=== PATIENT | female | born 1940 | race Caucasian/White ===

== ENCOUNTER 2017-11-25 13:08 | Observation (INO) | payer MEDICARE, BC ==
[2017-11-25] MEDS ORDERED: Meclizine 12.5 MG Tab PO ONE (13:20)
--- NOTE | 2017-11-25 13:26 | EDM.PDOC ---
ED HPI GENERAL MEDICAL PROBLEM - General Chief Complaint: General Stated Complaint: dissiness, n/v Time Seen by Provider: 11/25/17 13:20 Source of Information: Reports: Patient History Limitations: Reports: No Limitations - History of Present Illness INITIAL COMMENTS - FREE TEXT/NARRATIVE: Sarah is a 77 year old female with PMH significant for hypothyroidism, hypertension, hyperlipidemia, allergic rhinitis, and osteoarthritis, who presents to the ED with c/o dizziness described as spinning and nausea/ vomiting. She reports upon awakening this morning around 630 she was very unsteady and "everything was spinning." She reports she then laid back down and tried to sleep some. She reports around 930 am she got up again and continued to be unsteady and spinning. She then reports she took her blood pressure pills and tried to lay down again. She reports she has felt nauseated and has been dry heaving. She felt it would go away but it hasn't, so she called her neighbor to bring her to the ED. At time of ED presentation, patient does not want to open eyes due to spinning sensation. She is alert and oriented. She is able to ambulate from vehicle to wheelchair with assistance of staff. She describes the "dizziness" as spinning versus lightheaded. She denies any injury to her head. Denies any history of vertigo. She is not experiencing any tinnitus. Denies any hearing loss. She has not had anything to eat or drink today. - Related Data Allergies Allergy/AdvReac Type Severity Reaction Status Date / Time No Known Allergies Allergy Verified 11/25/17 13:27 Home Meds: Home Meds Aspirin [Adult Low Dose Aspirin EC] 81 mg PO BEDTIME 09/10/13 [History] Diclofenac Sodium/Misoprostol [Arthrotec 75 mg-200 Mcg Tab] 1 each PO DAILY PRN 09/10/13 [History] Levothyroxine 75 mcg PO ACBRK 09/10/13 [History] Loratadine [Claritin] 10 mg PO DAILY PRN 09/10/13 [History] Multivitamin [Multivitamins] 1 each PO DAILY 09/10/13 [History] Potassium Chloride 10 meq PO DAILY 09/10/13 [History] Quinapril/Hydrochlorothiazide [Quinapril-HCTZ 20-25 MG] 1 each PO DAILY [History] Simvastatin 40 mg PO BEDTIME 09/10/13 [History] Social & Family History - Tobacco Use Smoking Status *Q: Never Smoker - Caffeine Use Caffeine Use: Reports: Coffee, Soda - Recreational Drug Use Recreational Drug Use: No ED ROS GENERAL - Review of Systems Review Of Systems: See Below Constitutional: Reports: Decreased Appetite. Denies: Fever, Chills, Weakness, Fatigue HEENT: Reports: Vertigo. Denies: Dental Pain, Ear Pain, Eye Pain, Hearing Loss , Rhinitis, Sinus Problem, Throat Pain, Vision Change Respiratory: Reports: No Symptoms. Denies: Shortness of Breath, Cough, Sputum Cardiovascular: Denies: Chest Pain, Dyspnea on Exertion, Edema, Lightheadedness , Palpitations, Syncope Endocrine: Reports: No Symptoms GI/Abdominal: Reports: Decreased Appetite, Nausea, Vomiting. Denies: Abdominal Pain, Constipation, Diarrhea, Hematemesis, Hematochezia, Melena : Reports: No Symptoms. Denies: Dysuria, Frequency, Urgency Musculoskeletal: Reports: No Symptoms Skin: Reports: Diaphoresis Neurological: Reports: Dizziness, Difficulty Walking (due to unsteadiness). Denies: Confusion, Headache, Numbness, Tingling, Weakness Psychiatric: Reports: No Symptoms Hematologic/Lymphatic: Reports: No Symptoms Immunologic: Reports: No Symptoms ED EXAM, GENERAL - Physical Exam Exam: See Below Exam Limited By: No Limitations General Appearance: Alert, WD/WN, Mild Distress Eye Exam: Bilateral Eye: EOMI, Normal Fundi, Normal Inspection, PERRL Ears: Normal External Exam, Normal Canal, Hearing Grossly Normal, Normal TMs Nose: Normal Inspection, Normal Mucosa, No Blood Throat/Mouth: Normal Inspection, Normal Lips, Normal Teeth, Normal Gums, Normal Oropharynx, Normal Voice, No Airway Compromise Head: Atraumatic, Normocephalic Neck: Normal Inspection, Supple, Non-Tender, Full Range of Motion Respiratory/Chest: No Respiratory Distress, Lungs Clear, Normal Breath Sounds, No Accessory Muscle Use, Chest Non-Tender Cardiovascular: Normal Peripheral Pulses, Regular Rate, Rhythm, No Edema, No Gallop, No JVD, No Murmur, No Rub GI/Abdominal: Normal Bowel Sounds, Soft, Non-Tender, No Organomegaly, No Distention, No Abnormal Bruit, No Mass Back Exam: Normal Inspection, Full Range of Motion, NT Extremities: Normal Inspection, Normal Range of Motion, Non-Tender, Normal Capillary Refill, No Pedal Edema Neurological: Alert, Oriented, CN II-XII Intact, Normal Cognition, No Motor/ Sensory Deficits, Other (vertigo) Psychiatric: Normal Affect, Normal Mood Skin Exam: Warm, Dry, Intact, Normal Color, No Rash Lymphatic: No Adenopathy Course - Vital Signs Last Recorded V/S: Last Vital Signs Temp 98.7 F 11/25/17 19:16 Pulse 94 11/25/17 19:16 Resp 16 11/25/17 19:16 BP 151/64 H 11/25/17 19:16 Pulse Ox 94 L 11/25/17 19:16 - Orders/Labs/Meds Orders: Active Orders 24 hr Category Date Time Status Patient Status [ADT] Routine ADT 11/25/17 15:14 Active Cardiac Monitoring [RC] 0800,1999 Care 11/25/17 15:14 Active Oxygen Therapy [RC] .PRN Care 11/25/17 15:14 Active Up With Assistance [RC] .PRN Care 11/25/17 15:14 Active Vital Signs [RC] 0000,0400,0800,1200,1600,2000 Care 11/25/17 15:14 Active PT Evaluation and Treatment [CONS] Routine Cons 11/25/17 15:14 Active Regular Diet [DIET] Diet 11/25/17 Dinner Active Head wo Cont [CT] Stat Exams 11/25/17 13:18 Taken Acetaminophen [Tylenol] Med 11/25/17 15:14 Active 650 mg PO Q4H PRN Ondansetron [Zofran] Med 11/25/17 14:29 Active 4 mg IVPUSH Q6H PRN Temazepam [Restoril] Med 11/25/17 15:14 Active 15 mg PO BEDTIME PRN Resuscitation Status Routine Resus Stat 11/25/17 14:31 Ordered Medication Orders Acetaminophen (Tylenol) 650 mg PO Q4H PRN PRN Reason: Pain (Mild 1-3)/fever Aspirin (Halfprin) 81 mg PO BEDTIME [facility] Last Admin: 11/25/17 19:27 Dose: 81 mg Enoxaparin Sodium (Lovenox) 40 mg SUBCUT Q24H [facility] Last Admin: 11/25/17 19:27 Dose: 40 mg Levothyroxine Sodium (Levothyroxine) 75 mcg PO ACBRK GEOVANNA Meclizine HCl (Antivert) 25 mg PO Q6H PRN PRN Reason: Dizziness Last Admin: 11/25/17 19:26 Dose: 25 mg Non-Formulary Medication (Quinapril/Hydrochlorothiazide [Quinapril-Hctz 20-25 Mg ]) 1 each PO DAILY GE[facility]ANNA Ondansetron HCl (Zofran) 4 mg IVPUSH Q6H PRN PRN Reason: Nausea Last Admin: 11/25/17 14:35 Dose: 4 mg Potassium Chloride (Klor-Con 10) 10 meq PO DAILY GE[facility]NA Temazepam (Restoril) 15 mg PO BEDTIME PRN PRN Reason: Sleep Labs: Laboratory Tests 11/25/17 11/25/17 11/25/17 Range/Units 13:18 13:40 13:40 WBC 7.2 (5.0-10.0) 10^3/uL RBC 4.47 (4.00-5.50) 10^6/uL Hgb 14.1 (12.0-16.0) g/dL Hct 42.7 (37.0-47.0) % MCV 95.5 H (82.0-94.0) fL MCH 31.5 (27.0-32.0) pg MCHC 33.0 (33.0-38.0) g/dL RDW Coeff of [place] 14.0 (11.0-15.0) % Plt Count 277 (150-400) 10^3/uL Neut % (Auto) 77.1 (35-85) % Lymph % (Auto) 14.0 (10-55) % [place] % (Auto) 6.6 (0-16) % Eos % (Auto) 1.9 (0-5) % Baso % (Auto) 0.4 (0-3) % Neut # (Auto) 5.58 (1.80-7.00) 10^3/uL Lymph # (Auto) 1.01 (1.00-4.80) 10^3/uL [place] # (Auto) 0.48 (0.00-0.80) 10^3/uL Eos # (Auto) 0.14 (0.00-0.45) 10^3/uL Baso # (Auto) 0.03 10^3/uL Sodium 136 (136-145) mEq/L Potassium 3.5 (3.5-5.0) mEq/L Chloride 101 (98-106) mEq/L Carbon Dioxide 30 (21-32) mmol/L BUN 18 (7-18) mg/dL Creatinine 0.8 (0.6-1.0) mg/dL Est Cr Clr Drug Dosing 45.84 mL/min Estimated GFR (MDRD) > 60 (>=60) mL/min Glucose 140 H (75-99) mg/dL Calcium 9.6 (8.4-10.1) mg/dL Total Bilirubin 0.6 (0.0-1.0) mg/dL AST 18 (15-37) U/L ALT 30 (12-78) U/L Alkaline Phosphatase 94 (46-116) U/L Troponin I < 0.017 (0.00-0.06) ng/mL C-Reactive Protein < 0.2 L (0.2-0.8) mg/dL Total Protein 7.3 (6.4-8.2) g/dL Albumin 4.0 (3.4-5.0) g/dL Urine Color Yellow (YELLOW) Urine Appearance Clear (CLEAR) Urine pH 7.0 (4.5-8.0) Ur Specific [place] 1.025 H (1.003-1.020) Urine Protein 100 H (NEGATIVE) mg/dL Urine Glucose (UA) Negative (NEGATIVE) mg/dL Urine Ketones 15 H (NEGATIVE) mg/dL Urine Occult Blood Negative (NEGATIVE) Urine Nitrite Negative (NEGATIVE) Urine Bilirubin Negative (NEGATIVE) Urine Urobilinogen 0.2 (0.2-1.0) EU/dL Ur Leukocyte Esterase Negative (NEGATIVE) Urine RBC Not seen (0-5) /HPF Urine WBC Not seen (0-5) /HPF Ur Squamous Epith Cells Few H (NOT SEEN) /HPF Urine Bacteria Moderate H (NOT SEEN) /HPF Meds: Medications Generic Name Dose Route Start Last Admin Trade Name Freq PRN Reason Stop Dose Admin Acetaminophen 650 mg 11/25/17 15:14 Tylenol PO Q4H PRN Pain (Mild 1-3)/fever Aspirin 81 mg 11/25/17 20:00 11/25/17 19:27 Halfprin PO 81 mg BEDTIME GEOVANNA Administration Enoxaparin Sodium 40 mg 11/25/17 20:00 11/25/17 19:27 Lovenox SUBCUT 40 mg Q24H GEOVANNA Administration Levothyroxine Sodium 75 mcg 11/26/17 07:00 Levothyroxine PO ACBRK GEOVANAN Meclizine HCl 25 mg 11/25/17 18:15 11/25/17 19:26 Antivert PO 25 mg Q6H PRN Administration Dizziness Non-Formulary Medication 1 each 11/26/17 08:00 Quinapril/Hydrochlorothiazide [Quinapril-Hctz 20-25 Mg] PO DAILY GE[facility]NA Ondansetron HCl 4 mg 11/25/17 14:29 11/25/17 14:35 Zofran IVPUSH 4 mg Q6H PRN Administration Nausea Potassium Chloride 10 meq 11/26/17 08:00 Klor-Con 10 PO DAILY GEOVANNA Temazepam 15 mg 11/25/17 15:14 Restoril PO BEDTIME PRN Sleep Discontinued Medications Generic Name Dose Route Start Last Admin Trade Name Freq PRN Reason Stop Dose Admin Sodium Chloride 1,000 mls @ 75 mls/hr 11/25/17 15:14 11/25/17 16:04 Normal Saline IV 75 mls/hr ASDIRECTED GEOVANNA Administration Meclizine HCl 25 mg 11/25/17 13:20 11/25/17 13:25 Antivert PO 11/25/17 13:21 25 mg ONETIME ONE Administration - Radiology Interpretation Free Text/Narrative:: Head CT negative for acute infarct. Does show some right mastoid air cell CT Results Date: 11/25/17 CT Results Time: 15:03 - Re-Assessments/Exams Free Text/Narrative Re-Assessment/Exam: Discussed lab and CT results with patient. Labs all stable. I do feel that given her N/V and unsteadiness it would not be safe to send her home. Discussed admission to observation and have PT consult in am. Patient is agreeable to this. PLEASE SEE NURSE'S NOTE FOR PMH, PSH, SH, AND FH. Departure - Departure Time of Disposition: 14:34 Disposition: Refer to Observation Condition: Fair Clinical Impression: BPPV (benign paroxysmal positional vertigo) Qualifiers: Laterality: unspecified laterality Qualified Code(s): H81.10 - Benign paroxysmal vertigo, unspecified ear - Discharge Information *PRESCRIPTION DRUG MONITORING PROGRAM REVIEWED*: Not Applicable *COPY OF PRESCRIPTION DRUG MONITORING REPORT IN PATIENT NEELAM: Not Applicable - Problem List & Annotations (1) BPPV (benign paroxysmal positional vertigo) SNOMED Code(s): 085027749 Code(s): H81.10 - BENIGN PAROXYSMAL VERTIGO, UNSPECIFIED EAR Status: Acute Current Visit: No Qualifiers: Laterality: unspecified laterality Qualified Code(s): H81.10 - Benign paroxysmal vertigo, unspecified ear (2) Hypertension SNOMED Code(s): 35552421 Code(s): I10 - ESSENTIAL (PRIMARY) HYPERTENSION Status: Acute Current Visit: Yes Qualifiers: Hypertension type: essential hypertension Qualified Code(s): I10 - Essential (primary) hypertension - Problem List Review Problem List Initiated/Reviewed/Updated: Yes - My Orders Last 24 Hours: My Active Orders 11/25/17 13:18 Head wo Cont [CT] Stat 11/25/17 14:29 Ondansetron [Zofran] 4 mg IVPUSH Q6H PRN 11/25/17 14:31 Resuscitation Status Routine 11/25/17 15:14 Patient Status [ADT] Routine Cardiac Monitoring [RC] 0800,1999 Oxygen Therapy [RC] .PRN Up With Assistance [RC] .PRN Vital Signs [RC] 0000,0400,0800,1200,1600,2000 PT Evaluation and Treatment [CONS] Routine Acetaminophen [Tylenol] 650 mg PO Q4H PRN Temazepam [Restoril] 15 mg PO BEDTIME PRN 11/25/17 Dinner Regular Diet [DIET] - Assessment/Plan Admission H&P: Please use this note as an admission H&P Last 24 Hours: My Active Orders 11/25/17 13:18 Head wo Cont [CT] Stat 11/25/17 14:29 Ondansetron [Zofran] 4 mg IVPUSH Q6H PRN 11/25/17 14:31 Resuscitation Status Routine 11/25/17 15:14 Patient Status [ADT] Routine Cardiac Monitoring [RC] 0800,2000 Oxygen Therapy [RC] .PRN Up With Assistance [RC] .PRN Vital Signs [RC] 0000,0400,0800,1200,1600,2000 PT Evaluation and Treatment [CONS] Routine Acetaminophen [Tylenol] 650 mg PO Q4H PRN Temazepam [Restoril] 15 mg PO BEDTIME PRN 11/25/17 Dinner Regular Diet [DIET] Plan: Admit to Dr. Barton observation PT consult in am
[2017-11-25 14:02] LABS: CHLORIDE,CL 101 mEq/L (98-106); SODIUM,NA 136 mEq/L (136-145)
[2017-11-25] MEDS ORDERED: Ondansetron 4 MG/2 ML SDV IVPUSH PRN (14:29)
[2017-11-25] MEDS ORDERED: Temazepam 15 MG Cap PO PRN (15:14)
[2017-11-25] MEDS ORDERED: Sodium Chloride 0.9% 1,000 ML IV SCH (15:14)
[2017-11-25] MEDS ORDERED: Acetaminophen 325 MG Tab PO PRN (15:14)
[2017-11-25] MEDS: Meclizine 12.5 MG Tab PO PRN (19:26)
[2017-11-25] MEDS: Aspirin 81 MG Tab.EC PO SCH (19:27)
[2017-11-25] MEDS: Enoxaparin 40 MG/0.4 ML Syringe SUBCUT SCH (19:27)
[2017-11-26] MEDS: Levothyroxine 150 MCG Tab PO SCH (06:03)
[2017-11-26] MEDS: Potassium Chloride 10 MEQ Tab.ER PO SCH (08:26)
[2017-11-26] MEDS: Meclizine 12.5 MG Tab PO PRN ×2 (08:27→21:00)
--- NOTE | 2017-11-26 16:28 | PCM.PN ---
- General Info Date of Service: 11/26/17 Admission Dx/Problem (Free Text): BPPV Functional Status: Reports: Pain Controlled, Tolerating Diet, Ambulating - Review of Systems General: Reports: Fatigue. Denies: Fever, Weakness, Malaise HEENT: Denies: Ear Pain, Sinus Congestion, Rhinitis Pulmonary: Denies: Shortness of Breath, Cough Cardiovascular: Denies: Chest Pain, Edema, Lightheadedness Gastrointestinal: Reports: Nausea. Denies: Abdominal Pain, Vomiting Genitourinary: Reports: No Symptoms Musculoskeletal: Reports: No Symptoms Skin: Reports: No Symptoms Neurological: Reports: Dizziness, Weakness. Denies: Headache - Patient Data Vitals - Most Recent: Last Vital Signs Temp 99 F 11/26/17 16:00 Pulse 82 11/26/17 16:00 Resp 18 11/26/17 16:00 BP 134/64 11/26/17 16:00 Pulse Ox 94 L 11/26/17 16:00 Weight - Most Recent: 213 lb 12.8 oz Med Orders - Current: Current Medications Acetaminophen (Tylenol) 650 mg PO Q4H PRN PRN Reason: Pain (Mild 1-3)/fever Aspirin (Halfprin) 81 mg PO BEDTIME [facility] Last Admin: 11/25/17 19:27 Dose: 81 mg Enoxaparin Sodium (Lovenox) 40 mg SUBCUT Q24H [facility] Last Admin: 11/25/17 19:27 Dose: 40 mg Hydrochlorothiazide (Hydrochlorothiazide) 25 mg PO DAILY [facility] Levothyroxine Sodium (Levothyroxine) 75 mcg PO ACBRK [facility] Last Admin: 11/26/17 06:03 Dose: 75 mcg Lisinopril (Prinivil) 20 mg PO DAILY [facility] Meclizine HCl (Antivert) 25 mg PO Q6H PRN PRN Reason: Dizziness Last Admin: 11/26/17 08:27 Dose: 25 mg Ondansetron HCl (Zofran) 4 mg IVPUSH Q6H PRN PRN Reason: Nausea Last Admin: 11/25/17 14:35 Dose: 4 mg Potassium Chloride (Klor-Con 10) 10 meq PO DAILY [facility] Last Admin: 11/26/17 08:26 Dose: 10 meq Temazepam (Restoril) 15 mg PO BEDTIME PRN PRN Reason: Sleep Discontinued Medications Sodium Chloride (Normal Saline) 1,000 mls @ 75 mls/hr IV ASDIRECTED GEOVANNA Last Admin: 11/25/17 16:04 Dose: 75 mls/hr Meclizine HCl (Antivert) 25 mg PO ONETIME ONE Stop: 11/25/17 13:21 Last Admin: 11/25/17 13:25 Dose: 25 mg - Exam General: Alert, Oriented HEENT: Mucous Membr. Moist/[place] Neck: Supple Lungs: Clear to Auscultation, Normal Respiratory Effort Cardiovascular: Regular Rate, Regular Rhythm GI/Abdominal Exam: Normal Bowel Sounds, Soft, Non-Tender Extremities: Normal Inspection, No Pedal Edema Skin: Warm, Dry Neurological: No New Focal Deficit - Problem List & Annotations (1) BPPV (benign paroxysmal positional vertigo) SNOMED Code(s): 417487858 Code(s): H81.10 - BENIGN PAROXYSMAL VERTIGO, UNSPECIFIED EAR Status: Acute Priority: High Current Visit: Yes Qualifiers: Laterality: unspecified laterality Qualified Code(s): H81.10 - Benign paroxysmal vertigo, unspecified ear - Problem List Review Problem List Initiated/Reviewed/Updated: Yes - Assessment Assessment:: BPPV - Plan Plan:: Patient does admit that she is feeling better today, less dizzy than yesterday. She does feel very weak yet and tired. Was able to eat breakfast this am, only has mild nausea intermittently. She has ambulated up to the bathroom with the walker and has tolerated fairly well. Still has mild dizziness with movement. Telemetry is stable, NSR. Blood pressure stable. Will continue with Physical therapy consult this am. Encourage ambulation. Continue Meclizine. Possible discharge home tomorrow.
[2017-11-26] MEDS: Enoxaparin 40 MG/0.4 ML Syringe SUBCUT SCH (19:30)
[2017-11-26] MEDS: Aspirin 81 MG Tab.EC PO SCH (19:30)
[2017-11-27] MEDS: Levothyroxine 150 MCG Tab PO SCH (06:13)
[2017-11-27] MEDS ORDERED: Hydrochlorothiazide 25 MG Tab PO SCH (08:00)
[2017-11-27] MEDS ORDERED: Lisinopril 20 MG Tab PO SCH (08:00)
[2017-11-27] MEDS: Potassium Chloride 10 MEQ Tab.ER PO SCH (10:08)
--- NOTE | 2017-11-27 21:43 | PCM.DCSUM1 ---
Discharge Summary - Hospital Course Free Text/Narrative:: Sarah presented to ER with acute vertigo. Was unable to keep her eyes open or move much due to dizziness. She had not had any previous head trauma. Had tried resting and lying down at home but symptoms did not improve. [place] very nauseated. Work up in the ER was essentially negative, CT negative. Lab work stable. Given IV fluids and Zofran and admitted for observation and set up to see PT. - Discharge Data Discharge Date: 11/27/17 Discharge Disposition: Home, Self-Care 01 Condition: Good - Discharge Diagnosis/Problem(s) (1) BPPV (benign paroxysmal positional vertigo) SNOMED Code(s): 846236393 ICD Code: H81.10 - BENIGN PAROXYSMAL VERTIGO, UNSPECIFIED EAR Status: Acute Priority: High Qualifiers: Laterality: unspecified laterality Qualified Code(s): H81.10 - Benign paroxysmal vertigo, unspecified ear - Patient Summary/Data Complications: none Consults: Consultations 11/25/17 15:14 PT Evaluation and Treatment [CONS] Routine Hospital Course: Patient has had good improvement of dizziness. Was given Meclizine. PT for canalith repositioning. Denies any dizziness this am. Does continue to have right hip and leg pain which is chronic for her, will be seeing ortho for on . She denies any further nausea. Ambulating with walker per self and tolerating well. Eating well. - Patient Instructions Diet: Usual Diet as Tolerated Activity: As Tolerated - Discharge Plan *PRESCRIPTION DRUG MONITORING PROGRAM REVIEWED*: Not Applicable *COPY OF PRESCRIPTION DRUG MONITORING REPORT IN PATIENT NEELAM: Not Applicable Prescriptions/Med Rec: Meclizine [Antivert] 25 mg PO Q6H PRN #30 tab PRN Reason: Dizziness Home Medications: Home Meds Aspirin [Adult Low Dose Aspirin EC] 81 mg PO BEDTIME 09/10/13 [History] Diclofenac Sodium/Misoprostol [Arthrotec 75 mg-200 Mcg Tab] 1 each PO DAILY PRN 09/10/13 [History] Levothyroxine 75 mcg PO ACBRK 09/10/13 [History] Loratadine [Claritin] 10 mg PO DAILY PRN 09/10/13 [History] Multivitamin [Multivitamins] 1 each PO DAILY 09/10/13 [History] Potassium Chloride 10 meq PO DAILY 09/10/13 [History] Quinapril/Hydrochlorothiazide [Quinapril-HCTZ 20-25 MG] 1 each PO DAILY [History] Simvastatin 40 mg PO BEDTIME 09/10/13 [History] Meclizine [Antivert] 25 mg PO Q6H PRN #30 tab 11/27/17 [Rx] Forms: ED Department Discharge Referrals: Arnav Barton MD [Primary Care Provider] - (Follow up with Dr. Barton in 2 weeks) - Discharge Summary/Plan Comment DC Time >30 min.: No Discharge Summary/Plan Comment: Discharge home Meclizine for dizziness Follow up with Dr. Barton in 2 weeks for recheck Keep scheduled appointment with Dr. Bean on for hip pain. - General Info Date of Service: 11/27/17 Admission Dx/Problem (Free Text: BPPV Functional Status: Reports: Pain Controlled, Tolerating Diet, Ambulating - Review of Systems General: Reports: Weakness. Denies: Fever HEENT: Denies: Ear Pain, Sinus Congestion, Sore Throat Pulmonary: Denies: Shortness of Breath, Cough, Sputum Cardiovascular: Denies: Chest Pain, Edema, Lightheadedness Gastrointestinal: Denies: Abdominal Pain, Nausea, Vomiting Genitourinary: Reports: No Symptoms Musculoskeletal: Reports: Leg Pain, Joint Pain Skin: Reports: No Symptoms Neurological: Denies: Dizziness - Patient Data Vitals - Most Recent: Last Vital Signs Temp 96.7 F 11/27/17 07:31 Pulse 75 11/27/17 07:31 Resp 18 11/27/17 07:31 BP 161/65 H 11/27/17 07:31 Pulse Ox 94 L 11/27/17 07:31 Weight - Most Recent: 213 lb 12.8 oz Med Orders - Current: Current Medications Discontinued Medications Acetaminophen (Tylenol) 650 mg PO Q4H PRN PRN Reason: Pain (Mild 1-3)/fever Last Admin: 11/27/17 01:25 Dose: 650 mg Aspirin (Halfprin) 81 mg PO BEDTIME [facility] Last Admin: 11/26/17 19:30 Dose: 81 mg Enoxaparin Sodium (Lovenox) 40 mg SUBCUT Q24H [facility] Last Admin: 11/26/17 19:30 Dose: 40 mg Hydrochlorothiazide (Hydrochlorothiazide) 25 mg PO DAILY [facility] Last Admin: 11/27/17 10:08 Dose: Not Given Sodium Chloride (Normal Saline) 1,000 mls @ 75 mls/hr IV ASDIRECTED [facility] Last Admin: 11/25/17 16:04 Dose: 75 mls/hr Levothyroxine Sodium (Levothyroxine) 75 mcg PO ACBRK [facility] Last Admin: 11/27/17 06:13 Dose: 75 mcg Lisinopril (Prinivil) 20 mg PO DAILY [facility] Last Admin: 11/27/17 10:08 Dose: Not Given Meclizine HCl (Antivert) 25 mg PO ONETIME ONE Stop: 11/25/17 13:21 Last Admin: 11/25/17 13:25 Dose: 25 mg Meclizine HCl (Antivert) 25 mg PO Q6H PRN PRN Reason: Dizziness Last Admin: 11/26/17 21:00 Dose: 25 mg Ondansetron HCl (Zofran) 4 mg IVPUSH Q6H PRN PRN Reason: Nausea Last Admin: 11/25/17 14:35 Dose: 4 mg Potassium Chloride (Klor-Con 10) 10 meq PO DAILY [facility] Last Admin: 11/27/17 10:08 Dose: Not Given Temazepam (Restoril) 15 mg PO BEDTIME PRN PRN Reason: Sleep - Exam General: Reports: Alert, Oriented HEENT: Reports: Mucous Membr. Moist/[place] Neck: Reports: Supple Lungs: Reports: Clear to Auscultation, Normal Respiratory Effort Cardiovascular: Reports: Regular Rate, Regular Rhythm GI/Abdominal Exam: Normal Bowel Sounds, Soft, Non-Tender Skin: Reports: Warm, Dry Neurological: Reports: No New Focal Deficit
== END 2017-11-27 10:10 | disposition home or self-care (01) ==
LOC: CC.ED 13:08 → CC.MS 14:33 → UNDOADMOB 15:00 → CC.MS 15:00
PROVIDERS: ADMIT Nurse Practitioner Family; ATTEND Family Medicine
DX: H81.10 Benign paroxysmal vertigo, unspecified ear (principal); I10 Essential (primary) hypertension
CPT/HCPCS: 36415; 70450; 80053; 81001; 84484; 85025; 86140; 93005; 96372; 96374; 97112-GP; 99284; A9270-GY; G0378; J1650; J2405; J7030